=== PATIENT | male | born 1980 | race Caucasian/White ===

== ENCOUNTER 2022-12-28 06:22 | Day surgery (SDC) | payer OTHER ==
[2022-12-28 06:53] LABS: HEMATOCRIT 42.8 % (38.4-49.7); HEMOGLOBIN 14.4 g/dL (12.9-16.9); MEAN CORPUSCULAR HEMOGLOBIN 31.1 pg (31.6-35.5); MEAN CORPUSCULAR HGB CONC 33.6 g/dL (31.6-35.5); MEAN CORPUSCULAR VOLUME 92.4 fL (81.4-99.0); RED BLOOD CELL COUNT 4.63 M/uL (4.14-5.76); WHITE BLOOD CELL COUNT,WBC 8.9 K/uL (3.2-11.0)
[2022-12-28] MEDS ORDERED: Propofol 200 MG/20 ML SDV ONE ×2 (07:01→08:08)
[2022-12-28] MEDS ORDERED: fentaNYL 50 MCG/ML SDV ONE (07:01)
[2022-12-28] MEDS ORDERED: Midazolam 1 MG/ML 2 ML SDV ONE (07:01)
[2022-12-28 07:15] LABS: A/G RATIO 1.4 (1.2-2.2); ALANINE AMINOTRANSFERASE,ALT 35 U/L (12-78); ALBUMIN 3.9 g/dL (3.4-5.0); ALKALINE PHOSPHATASE 82 U/L (46-116); ASPARTATE AMNIOTRANSFERASE,AST 20 U/L (15-37); BILIRUBIN TOTAL 1.8 mg/dL (0.2-1.0); BLOOD UREA NITROGEN,BUN 8 mg/dL (7-18); CARBON DIOXIDE,CO2 27 mmol/L (21-32); CHLORIDE,CL 103 mmol/L (100-108); CREATININE 0.9 mg/dL (0.8-1.3); ESTIMATED GFR 111 mL/min (>60); GLUCOSE RANDOM 97 mg/dL (74-106); PROTEIN TOTAL,TP 6.7 g/dL (6.4-8.2); SODIUM,NA 138 mmol/L (140-148)
[2022-12-28] MEDS ORDERED: Lactated Ringers 1,000 ML IV SCH (07:30)
== END 2022-12-28 09:50 | disposition home or self-care (01) ==
LOC: JP.SDS 06:22 → EDSEX 07:15 → JP.SDS 09:50
PROVIDERS: ATTEND Student in an Organized Health Care Education/Training Program
DX: K64.8 Other hemorrhoids (principal); K64.4 Residual hemorrhoidal skin tags; F32.A Depression, unspecified
CPT/HCPCS: 36415; 45378; 80053; 85027; J2250; J2704; J3010; J7120